=== PATIENT | male | born 1955 | race Two or more races ===

== ENCOUNTER 2018-08-23 16:38 | Emergency (ER) | payer OTHER ==
[~2018-08-23] VITALS: Ht 180.3 cm; Wt 82.6 kg
[2018-08-23] MEDS ORDERED: PNEU16DI2 (17:02)
[2018-08-23] MEDS ORDERED: COZAAR50 MG (17:02)
[2018-08-23] MEDS ORDERED: ATIVAN1 M1 (17:03)
[2018-08-23] MEDS ORDERED: NORFLEX (17:04)
== END 2018-08-23 23:01 | disposition home or self-care (01) ==
LOC: ER 16:38
DX: M54.5 Low back pain (principal)